=== PATIENT | female | born 1945 | race Caucasian/White ===

== ENCOUNTER → 2022-09-06 | Outpatient (REF) | payer MEDICARE, OTHER ==
[~2022-09-06] MED LIST: AMLO1TAB24 PO; BACT2CRE TOP; CELE1CAP4 PO; DIOV320T PO; FOLI1TAB11 PO; HYDR12.55 PO; LEVO75TA4 PO; MELA1CAP2 PO; OMEGCAP9 PO; PANT40TA29 PO; PARO20TA3 PO; PRED5TA PO; PRIL20CA9 PO; ROPI1TAB3 PO; SIMV40TA20 PO; TRAM50TA2 PO; VITA2000 PO; [UNRECOGNIZED DRUG - OTHER] PO
== END ==
LOC: M SFHCRHEU 14:46
PROVIDERS: ATTEND Internal Medicine
DX: M25.50 Pain in unspecified joint (principal)

== ENCOUNTER → 2023-07-23 | Outpatient (CLI) | payer MEDICARE, OTHER ==
[~2023-07-23] MED LIST changes: -ROPI1TAB3 PO; +ROPI1TAB73 PO
== END ==
LOC: M PLAIMG 14:51
PROVIDERS: ATTEND Physician Assistant
DX: M47.816 Spondylosis without myelopathy or radiculopathy, lumbar region (principal)

== ENCOUNTER 2023-12-25 09:29 | Emergency (ER) | payer MEDICARE, OTHER ==
[~2023-12-25] VITALS: Ht 157.5 cm; Wt 75.5 kg
[2023-12-25] MEDS ORDERED: ISOVUE-370 76% 100ML VIAL As Ordered ONE (10:05)
[2023-12-25 10:34] LABS: BASO % 0.1 % (0.0-1.0); EOS # 0.1 10^3/uL (0.0-0.5); EOS % 0.4 % (0.0-3.0); HEMATOCRIT 40.7 % (36.0-47.0); LYMPH # 1.7 10^3/uL (1.5-5.0); LYMPH % 12.1 % (24.0-44.0); MEAN CORPUSCULAR HGB CONC 34.4 g/dl (32.0-36.5); MEAN CORPUSCULAR VOLUME 104.6 fl (80.0-96.0); MONO # 0.9 10^3/uL (0.0-0.8); MONO % 6.5 % (2.0-8.0); NEUTROPHILS # 11.1 10^3/uL (1.5-8.5); NEUTROPHILS % 79.9 % (36.0-66.0); PLATELET COUNT, AUTOMATED 255 10^3/uL (150-450); RED BLOOD COUNT 3.89 10^6/uL (4.00-5.40)
[2023-12-25 10:45] LABS: INR 1.06; PROTHROMBIN TIME 13.5 SECONDS (12.5-14.5)
[2023-12-25 10:46] LABS: PARTIAL THROMBOPLASTIN TIME 23.2 SECONDS (24.8-34.2)
[2023-12-25 11:04] LABS: BLOOD UREA NITROGEN 24 MG/DL (9-23); CALCIUM LEVEL 9.4 MG/DL (8.3-10.6); CARBON DIOXIDE LEVEL 27 MMOL/L (20-31); CHLORIDE LEVEL 104 MMOL/L (98-107); CREATININE FOR GFR 0.87 MG/DL (0.55-1.30); GLOMERULAR FILTRATION RATE > 60.0 (>32); GLUCOSE, FASTING 108 MG/DL (74-106); SODIUM LEVEL 139 MMOL/L (136-145)
[2023-12-25 11:07] LABS: ALBUMIN 3.9 G/DL (3.2-5.2); ALKALINE PHOSPHATASE 96 U/L (46-116); ALT/SGPT 30 U/L (7.0-40); AST/SGOT 25 U/L (<34); BILIRUBIN,DIRECT 0.1 MG/DL (<0.4); BILIRUBIN,TOTAL 0.5 MG/DL (0.3-1.2); THYROID STIMULATING HORMONE 2.101 uIU/ML (0.55-4.78); TOTAL PROTEIN 7.1 G/DL (5.7-8.2)
[2023-12-25 11:07] LABS: RSV AMPLIFICATION NEGATIVE (NEGATIVE)
[2023-12-25] MEDS: niCARdipine IV 40 MG in IV 1 EA IV SCH (11:39)
[2023-12-25] MEDS: ACETAMINOPHEN 500 MG TAB PO ONE (12:23)
[2023-12-25 12:40] VITALS: BP 191/103; O2SAT 96
[2023-12-25 12:48] VITALS: TEMP 98.3
== END 2023-12-25 13:03 | disposition short-term general hospital (02) ==
LOC: M ED 09:29
DX: I63.9 Cerebral infarction, unspecified (principal); I63.02 Cerebral infarction due to thrombosis of basilar artery; I66.01 Occlusion and stenosis of right middle cerebral artery; I10 Essential (primary) hypertension; E78.5 Hyperlipidemia, unspecified; E03.9 Hypothyroidism, unspecified; Z91.048 Other nonmedicinal substance allergy status; Z79.811 Long term (current) use of aromatase inhibitors; Z79.891 Long term (current) use of opiate analgesic; Z79.899 Other long term (current) drug therapy
CPT/HCPCS: 70450; 70496; 70498; 71045; 80047; 80048; 80076; 81001; 82140; 83930; 84443; 85025; 85610; 85730; 87631; 93005; 93041; 94760; 96365; 99285; Q9967

== ENCOUNTER → 2024-01-05 | Outpatient (REF) | LOC: SKLAB2 07:27 | PROVIDERS: ATTEND Internal Medicine | DX: I63.9 Cerebral infarction, unspecified (principal) ==

== ENCOUNTER → 2024-01-06 | Outpatient (REF) | payer MEDICARE, OTHER ==
[2024-01-06 07:38] LABS: HEMATOCRIT 34.2 % (36.0-47.0); HEMOGLOBIN 11.7 g/dl (12.0-15.5); MEAN CORPUSCULAR HEMOGLOBIN 36.8 pg (27.0-33.0); MEAN CORPUSCULAR HGB CONC 34.2 g/dl (32.0-36.5); MEAN CORPUSCULAR VOLUME 107.5 fl (80.0-96.0); PLATELET COUNT, AUTOMATED 247 10^3/uL (150-450); RED BLOOD COUNT 3.18 10^6/uL (4.00-5.40); WHITE BLOOD COUNT 7.4 10^3/uL (4.0-10.0)
[2024-01-06 08:01] LABS: CALCIUM LEVEL 8.4 MG/DL (8.3-10.6); CHOLESTEROL RISK RATIO 3.3 (<5); CREATININE FOR GFR 1.12 MG/DL (0.55-1.30); GLOMERULAR FILTRATION RATE 49.8 (>32); HDL CHOLESTEROL 34.5 MG/DL (>40); LDL CHOLESTEROL 60.5 MG/DL (<100); NON-HDL-C 79.5 MG/DL; POTASSIUM SERUM 4.1 MMOL/L (3.5-5.1)
== END ==
LOC: SKLAB2 07:41
PROVIDERS: ATTEND Internal Medicine
DX: E78.5 Hyperlipidemia, unspecified (principal); I10 Essential (primary) hypertension

== ENCOUNTER → 2024-01-13 | Outpatient (REF) | payer MEDICARE, OTHER ==
[2024-01-13 09:01] LABS: HEMATOCRIT 35.5 % (36.0-47.0); MEAN CORPUSCULAR HEMOGLOBIN 36.5 pg (27.0-33.0); MEAN CORPUSCULAR HGB CONC 33.8 g/dl (32.0-36.5); MEAN CORPUSCULAR VOLUME 107.9 fl (80.0-96.0); PLATELET COUNT, AUTOMATED 263 10^3/uL (150-450); RED BLOOD COUNT 3.29 10^6/uL (4.00-5.40); WHITE BLOOD COUNT 6.1 10^3/uL (4.0-10.0)
[2024-01-13 09:25] LABS: CALCIUM LEVEL 8.8 MG/DL (8.3-10.6); CREATININE FOR GFR 0.98 MG/DL (0.55-1.30); GLOMERULAR FILTRATION RATE 58.1 (>32); POTASSIUM SERUM 4.2 MMOL/L (3.5-5.1)
== END ==
LOC: SKLAB2 07:00
PROVIDERS: ATTEND Internal Medicine
DX: I10 Essential (primary) hypertension (principal)

== ENCOUNTER → 2024-01-16 | Outpatient (REF) | payer MEDICARE, OTHER ==
[2024-01-16 09:18] LABS: BLOOD UREA NITROGEN 15 MG/DL (9-23); CALCIUM LEVEL 8.9 MG/DL (8.3-10.6); CARBON DIOXIDE LEVEL 32 MMOL/L (20-31); CHLORIDE LEVEL 103 MMOL/L (98-107); CREATININE FOR GFR 0.94 MG/DL (0.55-1.30); GLOMERULAR FILTRATION RATE > 60.0 (>32); GLUCOSE, FASTING 93 MG/DL (74-106); POTASSIUM SERUM 3.8 MMOL/L (3.5-5.1); SODIUM LEVEL 141 MMOL/L (136-145)
== END ==
LOC: SKLAB2 07:00
PROVIDERS: ATTEND Internal Medicine
DX: I10 Essential (primary) hypertension (principal)

== ENCOUNTER 2024-05-05 09:33 | Inpatient (IN) | payer MEDICARE, OTHER ==
[~2024-05-05] VITALS: Ht 157.5 cm; Wt 68.5 kg
[2024-05-05] MEDS ORDERED: ISOVUE-370 76% 100ML VIAL As Ordered ONE (09:40)
[2024-05-05 09:53] LABS: BASO # 0.1 10^3/uL (0.0-0.2); BASO % 1.4 % (0.0-1.0); EOS # 0.4 10^3/uL (0.0-0.5); EOS % 6.7 % (0.0-3.0); HEMATOCRIT 36.4 % (36.0-47.0); HEMOGLOBIN 12.1 g/dl (12.0-15.5); LYMPH # 1.1 10^3/uL (1.5-5.0); LYMPH % 16.4 % (24.0-44.0); MEAN CORPUSCULAR HEMOGLOBIN 35.7 pg (27.0-33.0); MEAN CORPUSCULAR HGB CONC 33.2 g/dl (32.0-36.5); MEAN CORPUSCULAR VOLUME 107.4 fl (80.0-96.0); MONO # 0.5 10^3/uL (0.0-0.8); MONO % 7.5 % (2.0-8.0); NEUTROPHILS # 4.4 10^3/uL (1.5-8.5); NEUTROPHILS % 67.7 % (36.0-66.0); PLATELET COUNT, AUTOMATED 200 10^3/uL (150-450); RED BLOOD COUNT 3.39 10^6/uL (4.00-5.40); WHITE BLOOD COUNT 6.5 10^3/uL (4.0-10.0)
[2024-05-05 10:05] LABS: INR 1.09; PARTIAL THROMBOPLASTIN TIME 24.7 SECONDS (24.8-34.2); PROTHROMBIN TIME 13.8 SECONDS (12.5-14.5)
[2024-05-05 10:30] LABS: ALBUMIN 3.5 G/DL (3.2-5.2); BILIRUBIN,DIRECT 0.1 MG/DL (<0.4); BILIRUBIN,TOTAL 0.4 MG/DL (0.3-1.2); CALCIUM LEVEL 9.1 MG/DL (8.3-10.6); CREATININE FOR GFR 1.19 MG/DL (0.55-1.30); GLOMERULAR FILTRATION RATE 46.5 (>32); POTASSIUM SERUM 4.5 MMOL/L (3.5-5.1); TOTAL PROTEIN 6.1 G/DL (5.7-8.2)
[2024-05-05] MEDS ORDERED: CARV6.25 PO (13:57)
[2024-05-05] MEDS ORDERED: GABA-282 PO (13:57)
[2024-05-05] MEDS ORDERED: LEVO88TA3 PO (14:15)
[2024-05-05] MEDS ORDERED: VALA500T5 PO (14:15)
[2024-05-05] MEDS ORDERED: ROPI2TAB46 PO (14:15)
[2024-05-05] MEDS ORDERED: PARO40TA2 PO (14:15)
[2024-05-05] MEDS ORDERED: MECL-136 PO (14:15)
[2024-05-05] MEDS ORDERED: LOSA100T46 PO (14:15)
[2024-05-05] MEDS ORDERED: OXCA300T14 PO (14:15)
[2024-05-05] MEDS ORDERED: AMLO1TAB25 PO (14:15)
[2024-05-05] MEDS ORDERED: ATOR40TA75 PO (14:15)
[2024-05-05] MEDS ORDERED: VITA500045 PO (14:15)
[2024-05-05] MEDS ORDERED: ASPI81CH48 PO (14:15)
[2024-05-05] MEDS ORDERED: HOME MED LIST COMPLETE! XX SCH (14:20)
[2024-05-05] MEDS: rOPINIRole 1MG TAB PO SCH (15:12)
[2024-05-05] MEDS: GABAPENTIN 300 MG CAP PO SCH (15:12)
[2024-05-05] MEDS: MECLIZINE 12.5 MG TAB PO SCH (15:12)
[2024-05-05] MEDS: CLOPIDOGREL 75 MG TAB PO ONE (18:40)
[2024-05-05] MEDS ORDERED: MECLIZINE 12.5 MG TAB PO PRN (18:45)
[2024-05-05 19:50] VITALS: BP 150/73; TEMP 97.9; O2SAT 95
[2024-05-05] MEDS: ATORVASTATIN 20 MG TAB PO SCH (20:54)
[2024-05-05] MEDS: OXcarbazepine 300 MG TAB PO SCH (20:54)
[2024-05-05] MEDS ORDERED: CARVedilol 6.25 MG TAB PO SCH (21:00)
[2024-05-06 05:37] VITALS: BP 151/74; TEMP 98.1; O2SAT 93
[2024-05-06] MEDS: LEVOTHYROXINE 88MCG TABLET (0.088 MG) PO SCH (06:17)
[2024-05-06 07:21] LABS: BASO # 0.1 10^3/uL (0.0-0.2); BASO % 1.1 % (0.0-1.0); EOS # 0.4 10^3/uL (0.0-0.5); EOS % 6.4 % (0.0-3.0); HEMATOCRIT 36.5 % (36.0-47.0); HEMOGLOBIN 12.1 g/dl (12.0-15.5); LYMPH # 1.1 10^3/uL (1.5-5.0); LYMPH % 17.3 % (24.0-44.0); MEAN CORPUSCULAR HEMOGLOBIN 35.1 pg (27.0-33.0); MEAN CORPUSCULAR HGB CONC 33.2 g/dl (32.0-36.5); MEAN CORPUSCULAR VOLUME 105.8 fl (80.0-96.0); MONO # 0.6 10^3/uL (0.0-0.8); MONO % 8.8 % (2.0-8.0); NEUTROPHILS # 4.2 10^3/uL (1.5-8.5); NEUTROPHILS % 66.1 % (36.0-66.0); PLATELET COUNT, AUTOMATED 182 10^3/uL (150-450); RED BLOOD COUNT 3.45 10^6/uL (4.00-5.40); WHITE BLOOD COUNT 6.4 10^3/uL (4.0-10.0)
[2024-05-06 07:48] LABS: BLOOD UREA NITROGEN 18 MG/DL (9-23); CARBON DIOXIDE LEVEL 27 MMOL/L (20-31); CHLORIDE LEVEL 106 MMOL/L (98-107); CREATININE FOR GFR 0.85 MG/DL (0.55-1.30); GLOMERULAR FILTRATION RATE > 60.0 (>32); GLUCOSE, FASTING 99 MG/DL (74-106); POTASSIUM SERUM 4.4 MMOL/L (3.5-5.1); SODIUM LEVEL 139 MMOL/L (136-145)
[2024-05-06] MEDS: ASPIRIN 81MG CHEW TABLET PO SCH (08:07)
[2024-05-06] MEDS: FOLIC ACID 1MG TAB PO SCH (08:08)
[2024-05-06] MEDS: CelecoXIB (CeleBREX) 100 MG CAP PO SCH (08:08)
[2024-05-06] MEDS: PARoxetine 20MG TABLET PO SCH (08:08)
[2024-05-06] MEDS: CLOPIDOGREL 75 MG TAB PO SCH (08:08)
[2024-05-06] MEDS: PANTOPRAZOLE 40MG TAB (PROTONIX) PO SCH (08:09)
[2024-05-06] MEDS: valACYclovir HCL 500 MG TAB PO SCH (08:10)
[2024-05-06 12:00] VITALS: BP 150/75; TEMP 97.9; O2SAT 95
[2024-05-06 12:12] LABS: CHOLESTEROL LEVEL 111 MG/DL (<200); CHOLESTEROL RISK RATIO 2.93 (<5); HDL CHOLESTEROL 37.8 MG/DL (>40); NON-HDL-C 73.2 MG/DL; TRIGLYCERIDES LEVEL 96 MG/DL (<150)
[2024-05-06] MEDS: NYSTATIN 100,000 UNITS/GM TOPICAL PWD 15GM TOP SCH (14:49)
[2024-05-06 20:48] VITALS: BP 149/76; TEMP 97.7; O2SAT 97
[2024-05-06] MEDS: levETIRAcetam 250MG TABLET (KEPPRA) PO SCH (21:04)
[2024-05-07 04:03] VITALS: BP 148/81; TEMP 98.1; O2SAT 95
[2024-05-07 06:24] LABS: BASO # 0.1 10^3/uL (0.0-0.2); BASO % 0.9 % (0.0-1.0); EOS # 0.4 10^3/uL (0.0-0.5); EOS % 5.8 % (0.0-3.0); HEMATOCRIT 41.4 % (36.0-47.0); HEMOGLOBIN 13.8 g/dl (12.0-15.5); LYMPH # 1.2 10^3/uL (1.5-5.0); LYMPH % 16.4 % (24.0-44.0); MEAN CORPUSCULAR HEMOGLOBIN 35.6 pg (27.0-33.0); MEAN CORPUSCULAR HGB CONC 33.3 g/dl (32.0-36.5); MEAN CORPUSCULAR VOLUME 106.7 fl (80.0-96.0); MONO # 0.6 10^3/uL (0.0-0.8); MONO % 7.7 % (2.0-8.0); NEUTROPHILS # 5.2 10^3/uL (1.5-8.5); NEUTROPHILS % 68.9 % (36.0-66.0); PLATELET COUNT, AUTOMATED 189 10^3/uL (150-450); RED BLOOD COUNT 3.88 10^6/uL (4.00-5.40); WHITE BLOOD COUNT 7.6 10^3/uL (4.0-10.0)
[2024-05-07 06:40] LABS: BLOOD UREA NITROGEN 14 MG/DL (9-23); CARBON DIOXIDE LEVEL 29 MMOL/L (20-31); CHLORIDE LEVEL 105 MMOL/L (98-107); CREATININE FOR GFR 0.83 MG/DL (0.55-1.30); GLOMERULAR FILTRATION RATE > 60.0 (>32); GLUCOSE, FASTING 96 MG/DL (74-106); SODIUM LEVEL 141 MMOL/L (136-145)
[2024-05-07 09:19] VITALS: BP 138/78
[2024-05-07] MEDS ORDERED: KEPP250T5 PO (10:51)
[2024-05-07] MEDS ORDERED: CLOP75TA2 PO (10:51)
[2024-05-07 12:00] VITALS: BP 134/76; TEMP 98.1; O2SAT 95
[2024-05-07] MEDS: ARTIFICIAL TEARS DROPS 15ML BTL (VISINE DRY RELIEF) OD PRN (14:32)
== END 2024-05-07 15:04 | disposition home health service (06) | DRG 69 ==
LOC: M ED 09:33 → M ED INP 11:04 → M MSPAV 13:28
PROVIDERS: ADMIT Internal Medicine Nephrology; ATTEND Internal Medicine Nephrology
DX: G45.9 Transient cerebral ischemic attack, unspecified (principal); I69.354 Hemiplegia and hemiparesis following cerebral infarction affecting left non-dominant side; E03.9 Hypothyroidism, unspecified; I10 Essential (primary) hypertension; I77.1 Stricture of artery; G25.81 Restless legs syndrome; E78.5 Hyperlipidemia, unspecified; M15.9 Polyosteoarthritis, unspecified; M79.7 Fibromyalgia; B02.9 Zoster without complications; G47.33 Obstructive sleep apnea (adult) (pediatric); G62.0 Drug-induced polyneuropathy; F32.A Depression, unspecified; K76.0 Fatty (change of) liver, not elsewhere classified; D64.9 Anemia, unspecified; M47.26 Other spondylosis with radiculopathy, lumbar region; G25.0 Essential tremor; K44.9 Diaphragmatic hernia without obstruction or gangrene; Z85.3 Personal history of malignant neoplasm of breast; Z92.21 Personal history of antineoplastic chemotherapy; Z96.611 Presence of right artificial shoulder joint; Z96.612 Presence of left artificial shoulder joint; R56.9 Unspecified convulsions; Z96.653 Presence of artificial knee joint, bilateral; Z79.82 Long term (current) use of aspirin; Z79.899 Other long term (current) drug therapy; H35.30 Unspecified macular degeneration

== ENCOUNTER → 2024-10-04 | Outpatient (CLI) | payer MEDICARE, OTHER ==
[~2024-10-04] MED LIST changes: +AMLO1TAB25 PO; +ASPI81CH48 PO; +ATOR40TA75 PO; +CARV6.25 PO; +CLOP75TA2 PO; +GABA-1172 PO; +KEPP250T5 PO; +LEVO88TA3 PO; +LOSA100T46 PO; +MECL-136 PO; +OXCA300T14 PO; +PARO40TA2 PO; +ROPI2TAB46 PO; +VALA500T5 PO; +VITA500045 PO
== END ==
LOC: M PLAIMG 13:46
PROVIDERS: ATTEND Registered Nurse
DX: I11.9 Hypertensive heart disease without heart failure (principal); I63.9 Cerebral infarction, unspecified